=== PATIENT | male | born 1990 | race African-American/Black ===

== ENCOUNTER 2016-06-02 19:31 | Emergency (ER) | payer SELFPAY ==
[~2016-06-02] VITALS: Ht 185.4 cm; Wt 100.0 kg
[~2016-06-02 19:31] MED LIST: OMEP20TA OR; ONDA4TAB7 OR; Z.0.NO CURRENT MEDS
[2016-06-02 20:30] VITALS: BP 128/95; PULSE 81; RESP 18; TEMP 98.1; O2SAT 98
--- NOTE | 2016-06-02 21:22 | PD ---
HPI Chief Complaint: dental pain Time Seen by Provider: 21:20 Travel History International Travel<30 days: No Contact w/Intl Traveler<30days: No History of Present Illness HPI Patient comes in complaining of left lower molar dental pain that began yesterday while eating chicken wings. Patient denies anything making it better or worse. Patient feeling pain got worse today. The patient denies doing anything for this. Denies any fevers, difficulty swallowing, or radiation of the pain. Pain is constant. PFSH Past Medical History Medical History: Denies Significant Hx Social History Alcohol Use: No Tobacco Use: No Substance Use: No Allergies-Medications (Allergen,Severity, Reaction): Coded Allergies: No Known Allergies (Unverified , 06/02/16) Reported Meds & Prescriptions Reported Meds & Active Scripts Active Naprosyn (Naproxen) 500 Mg Tab 500 Mg PO Q12HR PRN Augmentin (Amoxicillin-Clavulanate) 875-125 mg Tab 875 Mg PO BID 10 Days not for use in CrCl <30 ml/min. Ondansetron Odt (Ondansetron HCl) 4 Mg Tab 4 Mg OR Q6HPRN Omeprazole 20 mg (Omeprazole) 20 Mg Tab 20 Mg OR DAILY Reported No Current Meds (Miscellaneous Medication) Misc Review of Systems Except as stated in HPI: all other systems reviewed are Neg Physical Exam Narrative GENERAL: Well-developed, well nourished, in no acute distress, and non-ill appearing. SKIN: Warm and dry. HEAD: Atraumatic. Normocephalic. EYES: Pupils equal and round. EOMI. No scleral icterus. No injection or drainage. ENT: No nasal bleeding or discharge. Mucous membranes pink and moist. There is no visible palpable abscess. Patient has an impacted wisdom tooth which is where he states his pain is. The floor the mouth, submandibular, and submental are all to soft palpation. NECK: Trachea midline. No cervical lymphadenopathy. Supple. No nuclear rigidity. RESPIRATORY: No accessory muscle use. No respiratory distress. MUSCULOSKELETAL: No obvious deformities. No clubbing. No cyanosis. No edema. Full range of motion. NEUROLOGICAL: Awake and alert. No obvious cranial nerve deficits. Motor grossly within normal limits. Normal speech. PSYCHIATRIC: Appropriate mood and affect; insight and judgment normal. Data Data Last Documented VS Vital Signs Date Time Temp Pulse Resp B/P Pulse Ox O2 Delivery O2 Flow Rate FiO2 06/02/16 20:30 98.1 81 18 128/95 98 MDM Medical Decision Making Medical Screen Exam Complete: Yes Emergency Medical Condition: Yes Differential Diagnosis Dental abscess, dental infection, dentalgia, other Narrative Course The patient presented with dental pain. There is no fever. There is no significant facial swelling or evidence of cellulitis. There is no evidence of drainable abscess at this time. There is no evidence of significant deep or invading abscess at this time. The patient will be placed on antibiotics and pain medication. The patient was instructed to follow up with a dentist. The patient was given the dental referral sheet. Warnings were discussed with the patient regarding worsening of infection. The patient is to return if pain worsens, develops progressive swelling or facial redness or fever. The patient agrees with plan. Patient in no obvious distress upon re-evaluation. Patient was asked if they wanted to speak to my attending, which the patient did not wish to do at this time. Any questions/concerns in reference to patient diagnosis/condition discussed and clarified prior to patient's discharge. Reinforced sheer importance of close follow up with patient's primary physician or primary care clinic and/or dentist. Instructed patient to return to ED immediately, if symptoms return/worsen. Pt showed understanding of above instructions. Further instructions and recommendations were detailed in discharge paperwork. Pt ambulated without difficulty out of ED at discharge. Diagnosis Primary Impression: Dentalgia Patient Instructions: Dental Abscess (GEN), Dental Caries (DC) Additional Instructions: Follow-up with your primary care physician and dentist as soon as possible. Rinse mouth with warm salt water gargles. Take all medication as prescribed. Return to the emergency department if symptoms get worse. Med/Other Pt SpecificInfo: Prescription(s) given Scripts Naproxen (Naprosyn)500 Mg Auc577 Mg PO Q12HR PRN (PAIN SCALE 1 TO 10) #14 TAB Ref 0 Prov:Rudolph Gordon MD 06/02/16 Amoxicillin-Clavulanate (Augmentin)875-125 mg Tdo948 Mg PO BID 10 Days Ref 0 not for use in CrCl <30 ml/min. Prov:Rudolph Gordon MD 06/02/16 Disposition: 01 DISCHARGE HOME Condition: Stable Dennis Fernández Jun 02, 2016 21:22
[2016-06-02] MEDS ORDERED: AUGM875T PO (21:24)
[2016-06-02] MEDS ORDERED: NAPR500 PO (21:24)
== END 2016-06-02 21:40 | disposition home or self-care (01) ==
LOC: NEPB 19:31
DX: K08.89 Other specified disorders of teeth and supporting structures (principal)
CPT/HCPCS: 99282